=== PATIENT | male | born 2005 | race Caucasian/White ===

== ENCOUNTER 2024-03-21 09:49 | Day surgery (SDC) | payer OTHER, SELFPAY ==
[2024-03-06 14:09] VITALS: BMI 19.3
[2024-03-15 08:41] VITALS: BMI 19.5
[2024-03-21 10:51] VITALS: BP 107/63; PULSE 65; RESP 16; TEMP 36.9; O2SAT 98; BMI 19.0
--- NOTE | 2024-03-21 11:03 | WPDHPUPDATE1 ---
History and Physical Update Update Date/Time: 03/21/24 11:03 History and Physical has been reviewed, including an updated exam of the patient. There are NO changes in the patient's condition. Risks, benefits, and alternatives have been discussed and questions answered. Patient agrees to proceed with procedure.
[2024-03-21] MEDS: LACTATED RINGERS 1,000 ML 150 ML IV CONT (11:06)
--- NOTE | 2024-03-21 11:15 | WPDANESEPPF ---
Anes - Initial Pre Proc Eval Procedure: Operation Date: 03/21/24 11:30 Proposed Procedures p Esophagogastroduodenoscopy - Yvon Billingsley MD Date/Time: 03/21/24 11:15 Surgeon: Yvon Billingsley MD Pre Op Diagnosis: Dysphagia, Eosinophilic Esophagitis Patient Data Age: 18 Gender: M Height: 1.93 m Weight: 70.9 kg Last Vital Signs Temp 36.9 C 03/21/24 10:51 Pulse 65 03/21/24 10:51 Resp 16 03/21/24 10:51 BP 107/63 03/21/24 10:51 Pulse Ox 98 03/21/24 10:51 O2 Del Method Room Air 03/21/24 10:51 Allergies Allergy/AdvReac Type Severity Reaction Status Date / Time No Known Allergies Allergy Verified 03/21/24 10:49 Home Medications Medication Instructions Recorded Confirmed Type famotidine 20 mg tablet 20 mg PO DAILY PRN Indigestion 03/04/24 03/21/24 History Patient hx anesthesia problems: none Family hx anesthesia problems: none Results Review: All pre-operative results and documents have been reviewed as part of the pre-operative evaluation. [facility] Past Medical History Medical History Dysphagia Eosinophilic esophagitis Social History Social History Smoking status: Never smoker Substance use type: does not use Living arrangements: with family Spiritual care concerns: No Anes - Eval Final PreProcedure Day of Procedure 03/21/24 11:15 Patient weight: normal Heart: regular rate and rhythm Lungs: clear to auscultation Airway: Mallampati scale class II Neurological: alert and oriented Last oral intake: >/= 8 hours ASA classification: II Emergent: no Anesthetic plan: proceed Anesthesia type and monitoring: general GIVS and standard monitoring Results Review: All pre-operative results and documents have been reviewed as part of the pre-operative evaluation. Informed Consent: The patient's anesthetic plan and its attendant risks and benefits were discussed with the patient/family/POA. Questions were solicited and answers provided to the satisfaction of the patient/family/POA.
[2024-03-21 12:12] VITALS: BP 107/69; PULSE 77; RESP 14; O2SAT 97
[2024-03-21 12:22] VITALS: BP 106/59; PULSE 66; RESP 16; O2SAT 98
[2024-03-21 12:32] VITALS: BP 100/68; PULSE 63; RESP 16; O2SAT 99
--- NOTE | 2024-03-21 12:49 | WPDANESPN ---
Anes - Prog Note Post-Op Date/Time: 03/21/24 12:49 Cardiovascular status: normal Respiratory status: normal Airway patency: baseline Mental status: baseline Post-Op hydration status: normal Vital Signs: Last Vital Signs Temp 36.9 C 03/21/24 10:51 Pulse 63 03/21/24 12:32 Resp 16 03/21/24 12:32 BP 100/68 03/21/24 12:32 Pulse Ox 99 03/21/24 12:32 O2 Del Method Room Air 03/21/24 12:32 Pain Score (VAS): 0 I/O: Intake & Output 03/20/24 03/21/24 03/21/24 23:59 07:59 15:59 Intake Total 500 Balance 500 Patient Feedback: Patient satisfied with anesthetic care.
== END 2024-03-21 12:40 | disposition home or self-care (01) ==
PROVIDERS: Visit Provider Internal Medicine Gastroenterology
PROC: 0DJ08ZZ Inspection of Upper Intestinal Tract, Via Natural or Artificial Opening Endoscopic (ICD-10-PCS; CPT 43235; principal; 2024-03-21 11:30)
DX: R13.19 Other dysphagia (principal); K20.0 Eosinophilic esophagitis; K21.00 Gastro-esophageal reflux disease with esophagitis, without bleeding
CPT/HCPCS: 43450; 43239

== ENCOUNTER 2024-03-21 11:03 | Outpatient (NON) | payer OTHER, SELFPAY | END 2024-03-21 11:04 | disposition home or self-care (01) | LOC: ANHLAB 03-22 11:04 | PROVIDERS: Visit Provider Internal Medicine Gastroenterology | DX: K20.0 Eosinophilic esophagitis (principal) | CPT/HCPCS: 88305 ==

== ENCOUNTER 2024-05-20 08:00 | Outpatient (CLI) | payer OTHER, SELFPAY ==
--- NOTE | ~2024-05-20 | XR_ITS ---
EXAMINATION: XR UGIAC w barium swallow DATE: 05/20/2024 08:35 INDICATION: Dysphagia, unspecified. TECHNIQUE: The patient drank thick barium, gas-producing crystals, and thin barium. Fluoroscopy of th e esophagus, stomach, and proximal small bowel was performed. Fluoroscopy exposure time was 0.6 minut es. The total number of images was 278. Total dose-area product was 0.933 Gy-cm^2. COMPARISON: None. FINDINGS: There is no mass or stricture of the esophagus. Esophageal motility is normal. There is no hiatal hernia. There was gastroesophageal reflux with provocative maneuvers. The stomach and proximal small bowel show normal folding patterns. IMPRESSION: 1. Gastroesophageal reflux with provocative maneuvers. Reviewed, dictated and finalized at location A.
== END 2024-05-20 08:01 | disposition home or self-care (01) ==
PROVIDERS: Visit Provider Nurse Practitioner Family
DX: K20.0 Eosinophilic esophagitis (principal); K21.9 Gastro-esophageal reflux disease without esophagitis
CPT/HCPCS: 74246